=== PATIENT | male | born 1960 | race African-American/Black ===

== ENCOUNTER 2016-06-05 09:44 | Emergency (ER) | payer SELFPAY ==
[~2016-06-05] VITALS: Ht 175.3 cm; Wt 75.0 kg
[~2016-06-05 09:44] MED LIST: IBUP-232 PO
[2016-06-05 09:46] VITALS: BP 144/87; PULSE 64; RESP 18; TEMP 98; O2SAT 95
[2016-06-05] MEDS ORDERED: PRED50 PO (10:22)
[2016-06-05] MEDS ORDERED: NAPR500T PO (10:22)
[2016-06-05] MEDS ORDERED: CYCL1TAB29 PO (10:22)
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
== END 2016-06-05 10:41 | disposition home or self-care (01) ==
LOC: NEPB 09:44
DX: M62.830 Muscle spasm of back (principal); V49.40XA Driver injured in collision with unspecified motor vehicles in traffic accident, initial encounter; Y93.89 Activity, other specified; Y92.410 Unspecified street and highway as the place of occurrence of the external cause
CPT/HCPCS: 99283